=== PATIENT | female | born 1980 | race Caucasian/White ===

== ENCOUNTER 2016-08-12 14:14 | Inpatient (IN) | payer OTHER ==
[2016-08-12 16:17] VITALS: BMI 24.3
--- NOTE | 2016-08-12 18:53 | HP ---
[id number]: Allergies Allergy/AdvReac Type Severity Reaction Status Date / Time lactose AdvReac Verified 08/12/16 19:10 History of Present Illness: 35 YEARS OLD FEMALE WITH LONG HISTORY OF COCAINE NICOTINE DEPENDENCE HAS ASTHMA AND HEMORRHOID IS ADMITTED TO REHAB Exam Limitations: No Limitations - Ebola screening Have you traveled outside of the country in the last 21 days: No Have you had contact with anyone from an Ebola affected area: No Have you been sick,other than usual withdrawal symptoms: No Do you have a fever: No - Review of Systems Constitutional: Loss of Appetite, Unintentional Wgt. Loss, Unexplained wgt Loss EENT: reports: No Symptoms Reported Respiratory: reports: SOB with Exertion Cardiac: reports: No Symptoms Reported GI: reports: No Symptoms Reported : reports: No Symptoms Reported Musculoskeletal: reports: No Symptoms Reported Integumentary: reports: No Symptoms Reported Neuro: reports: No Symptoms reported Endocrine: reports: No Symptoms Reported Hematology: reports: No Symptoms Reported Psychiatric: reports: Judgement Intact, Orientated x3, Anxious, Depressed Other Systems: Reviewed and Negative Patient History - Patient Medical History Hx Anemia: No Hx Asthma: Yes Hx Chronic Obstructive Pulmonary Disease (COPD): No Hx Cancer: No Hx Cardiac Disorders: No Hx Congestive Heart Failure: No Hx Hypertension: No (?) Hx Hypercholesterolemia: No Hx Pacemaker: No HX Cerebrovascular Accident: No Hx Seizures: No Hx Dementia: No Hx Diabetes: No Hx Gastrointestinal Disorders: No Hx Liver Disease: No Hx Genitourinary Disorders: No Hx Sexually Transmitted Disorders: No Hx Renal Disease (ESRD): No Hx Thyroid Disease: No Hx Human Immunodeficiency Virus (HIV): No Hx Hepatitis C: No Hx Depression: Yes Hx Suicide Attempt: No Hx Bipolar Disorder: No Hx Schizophrenia: No - Patient Surgical History Past Surgical History: No - PPD History Previous Implant?: Yes Documented Results: Negative w/o proof Implanted On Prior [facility] Admission?: No PPD to be Administered?: Yes - Reproductive History Patient is a Female of Child Bearing Age (11 -55 yrs old): Yes Last Menstrual Period: 08/01/16 Patient : No - Smoking Cessation Smoking history: Current every day smoker Have you smoked in the past 12 months: Yes Aproximately how many cigarettes per day: 2 Cigars Per Day: 0 Hx Chewing Tobacco Use: No Initiated information on smoking cessation: Yes 'Breaking Loose' booklet given: 08/12/16 - Substance & Tx. History Hx Alcohol Use: No Hx Substance Use: Yes Substance Use Type: Cocaine Hx Substance Use Treatment: Yes - Substances Abused Cocaine Route: Inhalation Frequency: 3-6 times per week Amount used: 20$ Age of first use: 13 Date of Last Use: 08/10/16 Family Disease History - Family Disease History Family Disease History: Diabetes: Daughter (TYPE I), Other: Father ( HIV ) Admission Physical Exam [facility] - Vital Signs Vital Signs: Vital Signs - 24 hr 08/12/16 16:14 Temperature 96 F L Pulse Rate 55 L Respiratory 20 Rate Blood Pressure 156/76 - Physical General Appearance: Yes: No Apparent Distress, Appropriately Dressed, Thin HEENTM: Yes: Hearing grossly Normal, Normal ENT Inspection, Normocephalic, Normal Voice Respiratory: Yes: Chest Non-Tender, Lungs Clear, Normal Breath Sounds, No Respiratory Distress, No Accessory Muscle Use Neck: Yes: Supple, Trachea in good position Breast: Yes: Breasts Symetrical Cardiology: Yes: Regular Rhythm, S1, S2, Bradycardia Abdominal: Yes: Non Tender, Soft Genitourinary: Yes: Vaginal Discharge (WHITISH) Back: Yes: Normal Inspection Musculoskeletal: Yes: full range of Motion, Gait Steady, Back pain Extremities: Yes: Normal Inspection, Normal Range of Motion, Non-Tender Neurological: Yes: Fully Oriented, Alert, Motor Strength 5/5, Normal Response, Depressed Affect Integumentary: Yes: Warm Lymphatic: Yes: Within Normal Limits - Diagnostic (1) Cocaine dependence, uncomplicated Current Visit: Yes Status: Chronic (2) Nicotine dependence Current Visit: Yes Status: Acute Qualifiers: Nicotine product type: cigarettes Substance use status: in withdrawal Qualified Code(s): F17.213 - Nicotine dependence, cigarettes, with withdrawal (3) Hemorrhoidal skin tags Current Visit: Yes Status: Chronic (4) Weight loss Current Visit: Yes Status: Chronic (5) Asthma Current Visit: Yes Status: Chronic Qualifiers: Asthma severity: mild intermittent Asthma complication type: with status asthmaticus Qualified Code(s): J45.22 - Mild intermittent asthma with status asthmaticus (6) GERD (gastroesophageal reflux disease) Current Visit: Yes Status: Chronic Qualifiers: Esophagitis presence: without esophagitis Qualified Code(s): K21.9 - Gastro-esophageal reflux disease without esophagitis (7) Lactose intolerance in adult Current Visit: Yes Status: Chronic Cleared for Admission [facility] - Detox or Rehab [facility] Level of Care: Observation Bed Detox Regimen/Protocol: Not Applicable Claeared for Rehab Admission: Yes [facility] Breath Alcohol Content Breath Alcohol Content: 0 Vital Signs - Vital Signs Vital Signs Refused: No Temperature: 96.1 F Temperature Source: Oral Pulse Rate: 55 Respiratory Rate: 20 Blood Pressure: 156/76 BP Location: Left Arm Blood Pressure Position: Sitting - Height Height: 5 ft 4 in - Weight Weight: 142 lb Weight Measurement Method: Standing Scale Body Mass Index (BMI): 24.3 - Bowel Function Bowel Movement: Yes Urine Pregancy Test - Result Urine Test Results: Negative- NO Line Present Urine Drug Screen - Control Is Test Valid: Yes - Results Drug Screen Negative: No Urine Drug Screen Results: KEEGAN-Cocaine
[2016-08-12] MEDS ORDERED: diphenhydrAMINE HCL 50 MG CAPSULE PO PRN (19:03)
[2016-08-12] MEDS ORDERED: ACETAMINOPHEN 325 MG TABLET (FP) PO PRN (19:03)
[2016-08-12] MEDS ORDERED: NICOTINE POLACRILEX 2 MG GUM BC PRN (19:03)
[2016-08-12] MEDS ORDERED: MAG HYDROX/AL HYDROX/SIMETH 30 ML UNIT-DOSE CUP PO PRN (19:03)
[2016-08-12] MEDS ORDERED: P-EPHED 60MG/TRIPROLIDI 2.5MG TABLET PO PRN (19:03)
[2016-08-12] MEDS ORDERED: LOPERAMIDE HCL 2 MG CAPSULE PO PRN (19:03)
[2016-08-12] MEDS ORDERED: MAGNESIUM CITRATE 300 ML BOTTLE PO PRN (19:03)
[2016-08-12] MEDS ORDERED: guaiFENesin/D-METHORPHAN HB 10 ML UNIT-DOSE CUPS PO PRN (19:03)
[2016-08-12] MEDS ORDERED: NICOTINE 14 MG/24 HOURS TOPICAL PATCH TD PRN (19:03)
[2016-08-12] MEDS ORDERED: MENTHOL/PHENOL 1 EACH UD MM PRN (19:03)
[2016-08-12] MEDS ORDERED: COLLOIDAL OATMEAL 1 BAR EACH TP PRN (19:06)
[2016-08-12] MEDS: THIAMINE HCL 100 MG TABLET (FP) PO SCH (21:40)
[2016-08-12] MEDS ORDERED: TUBERCULIN PPD 5 TU/0.1ML VIAL ID ONE (21:55)
[2016-08-12 22:30] LABS: URINE APPEARANCE CLEAR; URINE BILIRUBIN NEGATIVE (NEGATIVE); URINE COLOR LTYELLOW; URINE GLUCOSE (UA) NEGATIVE (NEGATIVE); URINE KETONE NEGATIVE (NEGATIVE); URINE LEUK ESTERASE NEGATIVE (NEGATIVE); URINE NITRITE NEGATIVE (NEGATIVE); URINE PROTEIN NEGATIVE (NEGATIVE); URINE UROBILINOGEN NEGATIVE E.U./dl (0.2-1.0)
[2016-08-12 22:38] LABS: URINE BLOOD 1+ (NEGATIVE)
[2016-08-12 22:41] LABS: URINE MUCUS RARE; URINE RBC 3 /hpf (0-3); URINE WBC <1 /hpf (3-5)
[2016-08-12] MEDS: PHENYLEPHRINE 0.25%/STARCH 1 EACH SUPP.RECT PR SCH (22:50)
[2016-08-12] MEDS: metroNIDAZOLE 0.75% VAGINAL GEL 70 GM TUBE VG SCH (23:45)
[2016-08-13] MEDS ORDERED: PT OWN MED DRAWER 7, Y5N ONE ×5 (00:07→14:37)
[2016-08-13] MEDS ORDERED: TUBERCULIN PPD 5 TU/0.1ML VIAL ID ONE (00:09)
[2016-08-13] MEDS: ALBUTEROL SO4 6.7 GM HFA INHALER IH PRN (06:42)
--- NOTE | 2016-08-13 09:14 | EKG ---
Test Reason : Blood Pressure : / mmHG Vent. Rate : 053 BPM Atrial Rate : 053 BPM P-R Int : 126 ms QRS Dur : 084 ms QT Int : 466 ms P-R-T Axes : 043 026 039 degrees QTc Int : 437 ms SINUS BRADYCARDIA WITH SINUS ARRHYTHMIA OTHERWISE NORMAL ECG NO PREVIOUS ECGS AVAILABLE Confirmed by AGGIE FISHER, GERALDINE ([id number]) on 08/13/2016 9:13:46 AM Referred By: Minnie Rodrigues Confirmed By:GERALDINE MARCIAL MD
[2016-08-13] MEDS: PHENYLEPHRINE 0.25%/STARCH 1 EACH SUPP.RECT PR SCH ×2 (09:20→21:25)
[2016-08-13] MEDS: ASPIRIN 81 MG CHEWABLE TABLETS PO SCH (09:20)
[2016-08-13] MEDS: PRENATAL VITAMINS W/ FOLIC ACID TABLET (FP) PO SCH (09:21)
[2016-08-13 10:11] LABS: MCH 31.2 pg (25.7-33.7); MCHC 33.3 g/dl (32.0-36.0); MEAN CELL VOLUME 93.9 fl (80-96); MEAN PLT VOLUME 9.6 fl (7.5-11.1); PLATELET COUNT 205 K/MM3 (134-434); RDW 13.4 % (11.6-15.6)
[2016-08-13 10:40] LABS: ALBUMIN 3.4 g/dl (3.4-5.0); ALK PHOS 68 U/L (45-117); ANION GAP 8 (8-16); BILIRUBIN,TOTAL 0.2 mg/dL (0.2-1.0); CALCIUM 8.4 mg/dL (8.5-10.1); CO2 25 mmol/L (21-32); COCKROFT - GAULT 87.805; CREATININE 0.9 mg/dL (0.55-1.02); GLUCOSE,RANDOM 85 mg/dL (74-106); SGOT/AST 18 U/L (15-37); SGPT/ALT 34 U/L (12-78); TOT PROT 5.9 g/dl (6.4-8.2)
[2016-08-13] MEDS: SODIUM CHLORIDE NASAL SPRAY 44 ML BOTTLE NS PRN (15:19)
[2016-08-13] MEDS: THIAMINE HCL 100 MG TABLET (FP) PO SCH (21:23)
[2016-08-13] MEDS: metroNIDAZOLE 0.75% VAGINAL GEL 70 GM TUBE VG SCH (21:24)
[2016-08-14] MEDS: PRENATAL VITAMINS W/ FOLIC ACID TABLET (FP) PO SCH (09:11)
[2016-08-14] MEDS: PHENYLEPHRINE 0.25%/STARCH 1 EACH SUPP.RECT PR SCH ×2 (09:11→21:47)
[2016-08-14] MEDS: ASPIRIN 81 MG CHEWABLE TABLETS PO SCH (09:12)
[2016-08-14] MEDS ORDERED: PT OWN MED DRAWER 7, Y5N ONE (20:50)
[2016-08-14] MEDS: THIAMINE HCL 100 MG TABLET (FP) PO SCH (21:47)
[2016-08-14] MEDS: metroNIDAZOLE 0.75% VAGINAL GEL 70 GM TUBE VG SCH (21:48)
[2016-08-15] MEDS ORDERED: PT OWN MED DRAWER 7, Y5N ONE (08:51)
--- NOTE | 2016-08-15 09:13 | HP ---
Psychiatrist Admission - Data Date of interview: 08/15/16 Admission source: [facility] Identifying data: This is the first admission to [address] [place] [address] for this 35 years old single AA mother of 5 (4 of them with grandmother,1 in Foster care).Patient is homeless,supported by PA. Medical History: BA,GERD. Psychiatric History: denies previous psychiatric history but reports a lot of anxiety,mood instability.Never being treated by psychiatrist. Physical/Sexual Abuse/Trauma History: denies Vital Signs: Vital Signs - 24 hr 08/15/16 08/15/16 08/15/16 00:30 03:30 07:00 Temperature 97.7 F Pulse Rate 54 L Respiratory 18 18 18 Rate Blood Pressure 136/79 Allergies/Adverse Reactions: Allergies Allergy/AdvReac Type Severity Reaction Status Date / Time lactose AdvReac Verified 08/12/16 19:10 Date of last physical exam: 08/12/16 Concur with the findings of this exam: Yes - Substance Abuse/Tx History Hx Alcohol Use: Yes (socially) Hx Substance Use: Yes (started cocaine/crack since 14 years old) Substance Use Type: Cocaine Hx Substance Use Treatment: Yes - Admission Criteria Previous failed treatment: Yes Poor recovery environment: Yes Comorbidities: Yes Lacks judgement: Yes Mental Status Exam - Mental Status Exam Alert and Oriented to: Time, Place, Person Cognitive Function: Grossly Intact Patient Appearance: Well Groomed Mood: Anxious Affect: Mood Congruent, Labile Patient Behavior: Cooperative Speech Pattern: Clear Voice Loudness: Normal Thought Process: Goal Oriented Thought Disorder: Not Present Hallucinations: Denies Suicidal Ideation: Denies Homicidal Ideation: Denies Insight/Judgement: Fair Sleep: Fair Appetite: Good Muscle strength/Tone: Normal Gait/Station: Normal Psychiatric Findings - Problem List ([place] 1, 2,3) (1) Cocaine dependence, uncomplicated Current Visit: Yes Status: Chronic (2) Nicotine dependence Current Visit: Yes Status: Acute Qualifiers: Nicotine product type: cigarettes Substance use status: in withdrawal Qualified Code(s): F17.213 - Nicotine dependence, cigarettes, with withdrawal (3) Weight loss Current Visit: Yes Status: Chronic (4) Asthma Current Visit: Yes Status: Chronic Qualifiers: Asthma severity: mild intermittent Asthma complication type: with status asthmaticus Qualified Code(s): J45.22 - Mild intermittent asthma with status asthmaticus (5) GERD (gastroesophageal reflux disease) Current Visit: Yes Status: Chronic Qualifiers: Esophagitis presence: without esophagitis Qualified Code(s): K21.9 - Gastro-esophageal reflux disease without esophagitis (6) Lactose intolerance in adult Current Visit: Yes Status: Chronic (7) Substance induced mood disorder Current Visit: Yes Status: Chronic - Initial Treatment Plan Initial Treatment Plan: Vistaril 50 mg po q 4 hrs as needed.Will monitor progress.
[2016-08-15] MEDS: PRENATAL VITAMINS W/ FOLIC ACID TABLET (FP) PO SCH (09:36)
[2016-08-15] MEDS: hydrOXYzine PAMOATE 50 MG CAPSULE (FP) PO PRN ×2 (09:36→15:13)
[2016-08-15] MEDS: PHENYLEPHRINE 0.25%/STARCH 1 EACH SUPP.RECT PR SCH ×2 (09:37→21:25)
[2016-08-15] MEDS: SODIUM CHLORIDE NASAL SPRAY 44 ML BOTTLE NS PRN (09:37)
[2016-08-15] MEDS: ASPIRIN 81 MG CHEWABLE TABLETS PO SCH (09:39)
[2016-08-15] MEDS: metroNIDAZOLE 0.75% VAGINAL GEL 70 GM TUBE VG SCH (21:24)
[2016-08-15] MEDS: THIAMINE HCL 100 MG TABLET (FP) PO SCH (21:24)
[2016-08-16] MEDS: hydrOXYzine PAMOATE 50 MG CAPSULE (FP) PO PRN ×2 (07:25→21:53)
[2016-08-16] MEDS ORDERED: PT OWN MED DRAWER 7, Y5N ONE ×3 (07:27→21:52)
[2016-08-16] MEDS: PRENATAL VITAMINS W/ FOLIC ACID TABLET (FP) PO SCH (10:22)
[2016-08-16] MEDS: PHENYLEPHRINE 0.25%/STARCH 1 EACH SUPP.RECT PR SCH ×2 (10:23→21:52)
[2016-08-16] MEDS: THIAMINE HCL 100 MG TABLET (FP) PO SCH (21:50)
[2016-08-16] MEDS: metroNIDAZOLE 0.75% VAGINAL GEL 70 GM TUBE VG SCH (21:52)
[2016-08-17] MEDS ORDERED: PT OWN MED DRAWER 7, Y5N ONE (08:56)
[2016-08-17] MEDS: PHENYLEPHRINE 0.25%/STARCH 1 EACH SUPP.RECT PR SCH ×2 (10:21→21:45)
[2016-08-17] MEDS: PRENATAL VITAMINS W/ FOLIC ACID TABLET (FP) PO SCH (10:22)
[2016-08-17] MEDS: MAGNESIUM HYDROX 2400MG/30ML ORAL SUSPENSION 30 ML CUP PO PRN (12:15)
[2016-08-17] MEDS: THIAMINE HCL 100 MG TABLET (FP) PO SCH (21:45)
[2016-08-17] MEDS: metroNIDAZOLE 0.75% VAGINAL GEL 70 GM TUBE VG SCH (21:45)
[2016-08-18] MEDS: PHENYLEPHRINE 0.25%/STARCH 1 EACH SUPP.RECT PR SCH ×2 (10:30→21:40)
[2016-08-18] MEDS: PRENATAL VITAMINS W/ FOLIC ACID TABLET (FP) PO SCH (10:30)
[2016-08-18] MEDS: THIAMINE HCL 100 MG TABLET (FP) PO SCH (21:40)
[2016-08-19] MEDS: hydrOXYzine PAMOATE 50 MG CAPSULE (FP) PO PRN (08:55)
[2016-08-19] MEDS: PRENATAL VITAMINS W/ FOLIC ACID TABLET (FP) PO SCH (10:40)
[2016-08-19] MEDS: PHENYLEPHRINE 0.25%/STARCH 1 EACH SUPP.RECT PR SCH ×2 (10:41→22:01)
--- NOTE | 2016-08-19 13:31 | PN ---
[facility] Progress Note Note: stated has vaginal itching ,vaginitis,stated responded to flagyl in the past , flagyl 500 mgs po tid for 7 days, diflucan 150 mgs po one
[2016-08-19] MEDS ORDERED: FLUCONAZOLE 50 MG TABLET PO ONE (13:48)
[2016-08-19] MEDS: metroNIDAZOLE 250 MG TABLET PO SCH ×2 (14:46→22:01)
[2016-08-19] MEDS ORDERED: PT OWN MED DRAWER 7, Y5N ONE (19:59)
[2016-08-19] MEDS: THIAMINE HCL 100 MG TABLET (FP) PO SCH (22:01)
[2016-08-20] MEDS: metroNIDAZOLE 250 MG TABLET PO SCH ×3 (06:38→21:50)
[2016-08-20] MEDS ORDERED: PT OWN MED DRAWER 7, Y5N ONE (08:57)
[2016-08-20] MEDS: PHENYLEPHRINE 0.25%/STARCH 1 EACH SUPP.RECT PR SCH ×2 (10:14→21:51)
[2016-08-20] MEDS: PRENATAL VITAMINS W/ FOLIC ACID TABLET (FP) PO SCH (10:15)
[2016-08-20] MEDS: hydrOXYzine PAMOATE 50 MG CAPSULE (FP) PO PRN (12:58)
[2016-08-20] MEDS: THIAMINE HCL 100 MG TABLET (FP) PO SCH (21:50)
[2016-08-21] MEDS: metroNIDAZOLE 250 MG TABLET PO SCH ×3 (06:30→21:55)
[2016-08-21] MEDS: hydrOXYzine PAMOATE 50 MG CAPSULE (FP) PO PRN (07:55)
[2016-08-21] MEDS: PHENYLEPHRINE 0.25%/STARCH 1 EACH SUPP.RECT PR SCH ×2 (10:17→21:56)
[2016-08-21] MEDS: PRENATAL VITAMINS W/ FOLIC ACID TABLET (FP) PO SCH (10:18)
[2016-08-21] MEDS ORDERED: PT OWN MED DRAWER 7, Y5N ONE ×2 (10:18→21:57)
[2016-08-21] MEDS: THIAMINE HCL 100 MG TABLET (FP) PO SCH (21:55)
[2016-08-22] MEDS ORDERED: PT OWN MED DRAWER 7, Y5N ONE ×2 (05:47→12:21)
[2016-08-22] MEDS: metroNIDAZOLE 250 MG TABLET PO SCH ×3 (06:47→21:49)
[2016-08-22] MEDS: hydrOXYzine PAMOATE 50 MG CAPSULE (FP) PO PRN (06:48)
[2016-08-22] MEDS: PHENYLEPHRINE 0.25%/STARCH 1 EACH SUPP.RECT PR SCH ×2 (09:29→21:48)
[2016-08-22] MEDS: PRENATAL VITAMINS W/ FOLIC ACID TABLET (FP) PO SCH (09:29)
[2016-08-22] MEDS: SODIUM CHLORIDE NASAL SPRAY 44 ML BOTTLE NS PRN (09:30)
--- NOTE | 2016-08-22 12:05 | PN ---
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 ROS: Significant for BA,GERD. Current Medications: Active Medications Generic Name Dose Route Start Last Admin Trade Name Freq PRN Reason Stop Dose Admin Acetaminophen 650 mg 08/12/16 19:03 Tylenol - PO Q4H PRN PAIN Al Hydroxide/Mg Hydroxide 30 ml 08/12/16 19:03 Mylanta Oral Suspension - PO Q6H PRN DYSPEPSIA Albuterol Sulfate 2 puff 08/12/16 19:06 08/13/16 06:42 Ventolin Hfa Inhaler - IH 2 puff Q4H PRN Administration SHORT OF BREATH/WHEEZING Colloidal Oatmeal 1 applic 08/12/16 19:06 08/13/16 09:21 Aveeno Soap - TP 1 bar DAILY PRN Administration HYGEINE Diphenhydramine HCl 50 mg 08/12/16 19:03 08/16/16 21:50 Benadryl - PO 50 mg HSMR1 PRN Administration INSOMNIA Eucalyptus/Menthol/Phenol/Sorbitol 1 each 08/12/16 19:03 Cepastat Lozenge - MM Q4H PRN SORE THROAT Guaifenesin 10 ml 08/12/16 19:03 Robitussin Dm - PO Q6H PRN COUGH Hydroxyzine Pamoate 50 mg 08/12/16 19:03 08/22/16 06:48 Vistaril - PO 50 mg Q4H PRN Administration AGITATION Loperamide HCl 4 mg 08/12/16 19:03 Imodium - PO Q6H PRN DIARRHEA Magnesium Citrate 300 ml 08/12/16 19:03 Citroma - PO Q48H PRN CONSTIPATION Magnesium Hydroxide 30 ml 08/12/16 19:03 08/17/16 12:15 Milk Of Magnesia - PO 30 ml DAILY PRN Administration CONSTIPATION Metronidazole 500 mg 08/19/16 14:00 08/22/16 06:47 Flagyl - PO 500 mg TID CHUCK Administration Nicotine 14 mg 08/12/16 19:03 Nicoderm Patch - TD DAILY PRN WITHDRAWAL(CONT SUBST) Nicotine Polacrilex 2 mg 08/12/16 19:03 08/20/16 18:50 Nicorette Gum - BC 2 mg Q2H PRN Administration NICOTINE REPLACEMENT RX Multivit/Folic Acid/Iron 1 tab 08/13/16 10:00 08/22/16 09:29 Vitamins ([facility]) - PO 1 tab DAILY CHUCK Administration Pseudoephedrine/Triprolidine 1 combo 08/12/16 19:03 Actifed - PO TID PRN NASAL CONGESTION Sodium Chloride 2 spray 08/12/16 19:05 08/22/16 09:30 [place] Nasal [place] - NS 2 spray TID PRN Administration NASAL CONGESTION Starch 1 each 08/12/16 22:00 08/22/16 09:29 Anusol Suppository - [place] 1 each BID CHUCK Administration Thiamine HCl 100 mg 08/12/16 22:00 08/21/16 21:55 Vitamin B1 - PO 100 mg HS CHUCK Administration Current Side Effect: No Lab tests ordered: No Lab tests reviewed: Yes Provider note:: Chart was revuewed,patient was evaluated.Case has been discussed on the morning report.According to the staff,patient is very suspicious and sensitive as well as too offensive,easily gets frustrated, irritable,anxious .According to her people around smell some vagina odor and making fun on her,counselour is prejudice against her. Possibilities of taking psychotropic medications has been discussed with the patient. Properties of Risperidone has been discussed with the patient including benefits,side effects and dose adjustment.She agrees to start Risperidone 0,5 mg po bid. Supportive therapy provided. Total face to face time:: 30 Mental Status Exam - Mental Status Exam Alert and Oriented to: Time, Place, Person Cognitive Function: Grossly Intact Patient Appearance: Unkempt Mood: Suspicious, Anxious Affect: Labile Patient Behavior: Restless, Guarded, Distractible, Impulsive, Cooperative Speech Pattern: Clear Voice Loudness: Normal Thought Process: Goal Oriented Thought Disorder: Being Controlled Hallucinations: Denies Suicidal Ideation: Denies Homicidal Ideation: Denies Insight/Judgement: Fair Sleep: Fair Appetite: Good Muscle strength/Tone: Normal Gait/Station: Normal Psychiatric Treatment Plan - Problem List (1) Cocaine dependence, uncomplicated Current Visit: Yes (2) Nicotine dependence Current Visit: Yes Qualifiers: Nicotine product type: cigarettes Substance use status: in withdrawal Qualified Code(s): F17.213 - Nicotine dependence, cigarettes, with withdrawal (3) Weight loss Current Visit: Yes (4) Asthma Current Visit: Yes Qualifiers: Asthma severity: mild intermittent Asthma complication type: with status asthmaticus Qualified Code(s): J45.22 - Mild intermittent asthma with status asthmaticus (5) GERD (gastroesophageal reflux disease) Current Visit: Yes Qualifiers: Esophagitis presence: without esophagitis Qualified Code(s): K21.9 - Gastro-esophageal reflux disease without esophagitis (6) Lactose intolerance in adult Current Visit: Yes (7) Substance induced mood disorder Current Visit: Yes
[2016-08-22] MEDS: risperiDONE 0.5 MG TABLET (FP) PO SCH ×2 (12:26→21:49)
--- NOTE | 2016-08-22 14:25 | PN ---
[facility] Progress Note Note: still c/o vag. d/c Start monistat.
[2016-08-22] MEDS: THIAMINE HCL 100 MG TABLET (FP) PO SCH (21:49)
[2016-08-22] MEDS: MICONAZOLE NITRATE 2% VAGINAL CREAM 45 GM TUBE VG SCH (21:51)
[2016-08-23] MEDS: metroNIDAZOLE 250 MG TABLET PO SCH ×3 (06:09→21:45)
[2016-08-23] MEDS ORDERED: PT OWN MED DRAWER 7, Y5N ONE ×2 (08:52→20:52)
[2016-08-23] MEDS: PRENATAL VITAMINS W/ FOLIC ACID TABLET (FP) PO SCH (10:43)
[2016-08-23] MEDS: PHENYLEPHRINE 0.25%/STARCH 1 EACH SUPP.RECT PR SCH ×2 (10:43→21:45)
[2016-08-23] MEDS: risperiDONE 0.5 MG TABLET (FP) PO SCH ×2 (10:43→21:45)
[2016-08-23] MEDS: hydrOXYzine PAMOATE 50 MG CAPSULE (FP) PO PRN (17:50)
[2016-08-23] MEDS: MICONAZOLE NITRATE 2% VAGINAL CREAM 45 GM TUBE VG SCH (21:44)
[2016-08-23] MEDS: THIAMINE HCL 100 MG TABLET (FP) PO SCH (21:46)
[2016-08-24] MEDS: metroNIDAZOLE 250 MG TABLET PO SCH ×3 (06:38→21:42)
[2016-08-24] MEDS: hydrOXYzine PAMOATE 50 MG CAPSULE (FP) PO PRN (06:39)
[2016-08-24] MEDS ORDERED: PT OWN MED DRAWER 7, Y5N ONE ×2 (08:58→21:44)
--- NOTE | 2016-08-24 10:15 | PN ---
Psychiatric Progress Note Vital Signs: Vital Signs Period Temp Pulse Resp BP Sys/Leal Pulse Ox Last 24 Hr 97.8 F 85 18-18 121/85 Date of Session: 08/24/16 Chief Complaint:: Griffin so nervious,people are talking about me." HPI: Patient addressed Cocaine dependence comorbid with Substance induced mood/ psychotic disorder.Rule out Schizophrenia.Paranoid type. ROS: BA,GERD. Current Medications: Active Medications Generic Name Dose Route Start Last Admin Trade Name Freq PRN Reason Stop Dose Admin Acetaminophen 650 mg 08/12/16 19:03 Tylenol - PO Q4H PRN PAIN Al Hydroxide/Mg Hydroxide 30 ml 08/12/16 19:03 Mylanta Oral Suspension - PO Q6H PRN DYSPEPSIA Albuterol Sulfate 2 puff 08/12/16 19:06 08/13/16 06:42 Ventolin Hfa Inhaler - IH 2 puff Q4H PRN Administration SHORT OF BREATH/WHEEZING Benztropine Mesylate 0.5 mg 08/24/16 22:00 Cogentin - PO HS CHUCK Colloidal Oatmeal 1 applic 08/12/16 19:06 08/13/16 09:21 Aveeno Soap - TP 1 bar DAILY PRN Administration HYGEINE Diphenhydramine HCl 50 mg 08/12/16 19:03 08/16/16 21:50 Benadryl - PO 50 mg HSMR1 PRN Administration INSOMNIA Eucalyptus/Menthol/Phenol/Sorbitol 1 each 08/12/16 19:03 Cepastat Lozenge - MM Q4H PRN SORE THROAT Guaifenesin 10 ml 08/12/16 19:03 Robitussin Dm - PO Q6H PRN COUGH Hydroxyzine Pamoate 50 mg 08/24/16 14:00 Vistaril - PO QID CHUCK Loperamide HCl 4 mg 08/12/16 19:03 Imodium - PO Q6H PRN DIARRHEA Magnesium Citrate 300 ml 08/12/16 19:03 Citroma - PO Q48H PRN CONSTIPATION Magnesium Hydroxide 30 ml 08/12/16 19:03 08/17/16 12:15 Milk Of Magnesia - PO 30 ml DAILY PRN Administration CONSTIPATION Metronidazole 500 mg 08/19/16 14:00 08/24/16 06:38 Flagyl - PO 500 mg TID CHUCK Administration Miconazole Nitrate 1 applic 08/22/16 22:00 08/23/16 21:44 Monistat-7 Vaginal Cream - VG 08/28/16 22:01 1 applic HS CHUCK Administration Nicotine 14 mg 08/12/16 19:03 Nicoderm Patch - TD DAILY PRN WITHDRAWAL(CONT SUBST) Nicotine Polacrilex 2 mg 08/12/16 19:03 08/20/16 18:50 Nicorette Gum - BC 2 mg Q2H PRN Administration NICOTINE REPLACEMENT RX Multivit/Folic Acid/Iron 1 tab 08/13/16 10:00 08/23/16 10:43 Vitamins ([facility]) - PO 1 tab DAILY CHUCK Administration Pseudoephedrine/Triprolidine 1 combo 08/12/16 19:03 Actifed - PO TID PRN NASAL CONGESTION Risperidone 1 mg 08/24/16 22:00 Risperdal - PO BID CHUCK Sodium Chloride 2 spray 08/12/16 19:05 08/22/16 09:30 [place] Nasal [place] - NS 2 spray TID PRN Administration NASAL CONGESTION Starch 1 each 08/12/16 22:00 08/23/16 21:45 Anusol Suppository - [place] 1 each BID CHUCK Administration Thiamine HCl 100 mg 08/12/16 22:00 08/23/16 21:46 Vitamin B1 - PO 100 mg HS CHUCK Administration Current Side Effect: No Lab tests ordered: No Lab tests reviewed: Yes Provider note:: Chart was revuewed,medications and treatment plan has been discussed with the patient .She reports having anxiety related to people around who are after her,about odor from her .She remains suspicious and quarded. Dose adjustment of antipsychotics and mood stabilizers has been discussed with the patient.She agrees for adjustment of Risperidone to 1 mg po bid,Vistaril 50 mg po qid.Start Cogentin 0,5 mg po hs. Supportive therapy provided. Total face to face time:: 30 Mental Status Exam - Mental Status Exam Alert and Oriented to: Time, Place, Person Cognitive Function: Grossly Intact Patient Appearance: Unkempt Mood: Nervous, Apprehensive, Expansive Patient Behavior: Restless, Guarded, Impulsive Speech Pattern: Clear Voice Loudness: Normal Thought Process: Goal Oriented Thought Disorder: Present, Paranoid Ideation Hallucinations: Denies Suicidal Ideation: Denies Homicidal Ideation: Denies Insight/Judgement: Impaired Sleep: Fair Muscle strength/Tone: Normal Gait/Station: Normal Psychiatric Treatment Plan - Problem List (1) Cocaine dependence, uncomplicated Current Visit: Yes (2) Nicotine dependence Current Visit: Yes Qualifiers: Nicotine product type: cigarettes Substance use status: in withdrawal Qualified Code(s): F17.213 - Nicotine dependence, cigarettes, with withdrawal (3) Weight loss Current Visit: Yes (4) Asthma Current Visit: Yes Qualifiers: Asthma severity: mild intermittent Asthma complication type: with status asthmaticus Qualified Code(s): J45.22 - Mild intermittent asthma with status asthmaticus (5) GERD (gastroesophageal reflux disease) Current Visit: Yes Qualifiers: Esophagitis presence: without esophagitis Qualified Code(s): K21.9 - Gastro-esophageal reflux disease without esophagitis (6) Lactose intolerance in adult Current Visit: Yes (7) Substance induced mood disorder Current Visit: Yes (8) Psychoactive substance-induced mood disorder Current Visit: Yes (9) Hemorrhoidal skin tags Current Visit: Yes
[2016-08-24] MEDS ORDERED: risperiDONE 1 MG TABLET (FP) PO STA (10:35)
[2016-08-24] MEDS: PRENATAL VITAMINS W/ FOLIC ACID TABLET (FP) PO SCH (10:36)
[2016-08-24] MEDS: risperiDONE 0.5 MG TABLET (FP) PO SCH (10:44)
[2016-08-24] MEDS: PHENYLEPHRINE 0.25%/STARCH 1 EACH SUPP.RECT PR SCH ×2 (11:30→21:41)
[2016-08-24] MEDS: hydrOXYzine PAMOATE 50 MG CAPSULE (FP) PO SCH ×3 (13:07→21:42)
[2016-08-24] MEDS: THIAMINE HCL 100 MG TABLET (FP) PO SCH (21:42)
[2016-08-24] MEDS: BENZTROPINE MESYLATE 1 MG TABLET (FP) PO SCH (21:43)
[2016-08-24] MEDS: MICONAZOLE NITRATE 2% VAGINAL CREAM 45 GM TUBE VG SCH (21:44)
[2016-08-24] MEDS: risperiDONE 1 MG TABLET (FP) PO SCH (21:45)
[2016-08-25] MEDS: metroNIDAZOLE 250 MG TABLET PO SCH ×3 (06:09→21:48)
[2016-08-25] MEDS ORDERED: PT OWN MED DRAWER 7, Y5N ONE (08:47)
[2016-08-25] MEDS: hydrOXYzine PAMOATE 50 MG CAPSULE (FP) PO SCH ×4 (10:16→21:48)
[2016-08-25] MEDS: SODIUM CHLORIDE NASAL SPRAY 44 ML BOTTLE NS PRN (10:16)
[2016-08-25] MEDS: PHENYLEPHRINE 0.25%/STARCH 1 EACH SUPP.RECT PR SCH ×2 (10:16→21:49)
[2016-08-25] MEDS: PRENATAL VITAMINS W/ FOLIC ACID TABLET (FP) PO SCH (10:16)
[2016-08-25] MEDS: risperiDONE 1 MG TABLET (FP) PO SCH ×2 (10:16→21:48)
[2016-08-25] MEDS: MICONAZOLE NITRATE 2% VAGINAL CREAM 45 GM TUBE VG SCH (21:47)
[2016-08-25] MEDS: THIAMINE HCL 100 MG TABLET (FP) PO SCH (21:48)
[2016-08-25] MEDS: BENZTROPINE MESYLATE 1 MG TABLET (FP) PO SCH (21:49)
[2016-08-26] MEDS: metroNIDAZOLE 250 MG TABLET PO SCH ×2 (06:34→13:22)
[2016-08-26] MEDS ORDERED: PT OWN MED DRAWER 7, Y5N ONE (09:00)
[2016-08-26] MEDS: PHENYLEPHRINE 0.25%/STARCH 1 EACH SUPP.RECT PR SCH ×2 (10:23→21:21)
[2016-08-26] MEDS: risperiDONE 1 MG TABLET (FP) PO SCH ×2 (10:23→21:23)
[2016-08-26] MEDS: hydrOXYzine PAMOATE 50 MG CAPSULE (FP) PO SCH ×4 (10:23→21:23)
[2016-08-26] MEDS: PRENATAL VITAMINS W/ FOLIC ACID TABLET (FP) PO SCH (10:23)
[2016-08-26] MEDS: BENZTROPINE MESYLATE 1 MG TABLET (FP) PO SCH (21:22)
[2016-08-26] MEDS: HYDROCORTISONE 2.5% TOPICAL CREAM 30 GM TUBE TP SCH (21:22)
[2016-08-26] MEDS: MICONAZOLE NITRATE 2% VAGINAL CREAM 45 GM TUBE VG SCH (21:24)
[2016-08-26] MEDS: THIAMINE HCL 100 MG TABLET (FP) PO SCH (21:24)
[2016-08-27] MEDS: risperiDONE 1 MG TABLET (FP) PO SCH ×2 (10:16→21:30)
[2016-08-27] MEDS: hydrOXYzine PAMOATE 50 MG CAPSULE (FP) PO SCH ×4 (10:16→21:30)
[2016-08-27] MEDS: PRENATAL VITAMINS W/ FOLIC ACID TABLET (FP) PO SCH (10:16)
[2016-08-27] MEDS: PHENYLEPHRINE 0.25%/STARCH 1 EACH SUPP.RECT PR SCH ×2 (10:16→21:31)
[2016-08-27] MEDS: HYDROCORTISONE 2.5% TOPICAL CREAM 30 GM TUBE TP SCH ×2 (10:16→21:31)
[2016-08-27] MEDS: THIAMINE HCL 100 MG TABLET (FP) PO SCH (21:30)
[2016-08-27] MEDS: MICONAZOLE NITRATE 2% VAGINAL CREAM 45 GM TUBE VG SCH (21:30)
[2016-08-27] MEDS: BENZTROPINE MESYLATE 1 MG TABLET (FP) PO SCH (21:31)
[2016-08-28] MEDS: ALBUTEROL SO4 6.7 GM HFA INHALER IH PRN (06:29)
[2016-08-28] MEDS ORDERED: PT OWN MED DRAWER 7, Y5N ONE (06:29)
[2016-08-28] MEDS: HYDROCORTISONE 2.5% TOPICAL CREAM 30 GM TUBE TP SCH ×2 (09:57→21:36)
[2016-08-28] MEDS: hydrOXYzine PAMOATE 50 MG CAPSULE (FP) PO SCH ×4 (09:58→21:36)
[2016-08-28] MEDS: PRENATAL VITAMINS W/ FOLIC ACID TABLET (FP) PO SCH (09:58)
[2016-08-28] MEDS: PHENYLEPHRINE 0.25%/STARCH 1 EACH SUPP.RECT PR SCH ×2 (09:58→21:36)
[2016-08-28] MEDS: risperiDONE 1 MG TABLET (FP) PO SCH ×2 (09:58→21:36)
[2016-08-28] MEDS: BENZTROPINE MESYLATE 1 MG TABLET (FP) PO SCH (21:36)
[2016-08-28] MEDS: THIAMINE HCL 100 MG TABLET (FP) PO SCH (21:36)
[2016-08-28] MEDS: MICONAZOLE NITRATE 2% VAGINAL CREAM 45 GM TUBE VG SCH (21:37)
[2016-08-29] MEDS: risperiDONE 1 MG TABLET (FP) PO SCH ×2 (10:27→21:46)
[2016-08-29] MEDS: hydrOXYzine PAMOATE 50 MG CAPSULE (FP) PO SCH ×4 (10:27→21:46)
[2016-08-29] MEDS: PRENATAL VITAMINS W/ FOLIC ACID TABLET (FP) PO SCH (10:27)
[2016-08-29] MEDS: HYDROCORTISONE 2.5% TOPICAL CREAM 30 GM TUBE TP SCH ×2 (10:27→21:47)
[2016-08-29] MEDS: PHENYLEPHRINE 0.25%/STARCH 1 EACH SUPP.RECT PR SCH ×2 (10:27→21:47)
[2016-08-29] MEDS: THIAMINE HCL 100 MG TABLET (FP) PO SCH (21:46)
[2016-08-29] MEDS: BENZTROPINE MESYLATE 1 MG TABLET (FP) PO SCH (21:47)
[2016-08-30] MEDS: PRENATAL VITAMINS W/ FOLIC ACID TABLET (FP) PO SCH (10:51)
[2016-08-30] MEDS: PHENYLEPHRINE 0.25%/STARCH 1 EACH SUPP.RECT PR SCH ×2 (10:51→21:41)
[2016-08-30] MEDS: HYDROCORTISONE 2.5% TOPICAL CREAM 30 GM TUBE TP SCH ×2 (10:51→21:41)
[2016-08-30] MEDS: risperiDONE 1 MG TABLET (FP) PO SCH ×2 (10:52→21:42)
[2016-08-30] MEDS: hydrOXYzine PAMOATE 50 MG CAPSULE (FP) PO SCH ×4 (10:52→21:42)
[2016-08-30] MEDS: THIAMINE HCL 100 MG TABLET (FP) PO SCH (21:42)
[2016-08-30] MEDS: BENZTROPINE MESYLATE 1 MG TABLET (FP) PO SCH (21:43)
[2016-08-30] MEDS ORDERED: PT OWN MED DRAWER 7, Y5N ONE (23:41)
[2016-08-31] MEDS: PRENATAL VITAMINS W/ FOLIC ACID TABLET (FP) PO SCH (10:35)
[2016-08-31] MEDS: PHENYLEPHRINE 0.25%/STARCH 1 EACH SUPP.RECT PR SCH ×2 (10:35→21:50)
[2016-08-31] MEDS: risperiDONE 1 MG TABLET (FP) PO SCH ×2 (10:35→21:49)
[2016-08-31] MEDS: HYDROCORTISONE 2.5% TOPICAL CREAM 30 GM TUBE TP SCH ×2 (10:36→21:50)
[2016-08-31] MEDS: hydrOXYzine PAMOATE 50 MG CAPSULE (FP) PO SCH ×4 (10:36→21:50)
[2016-08-31] MEDS ORDERED: PT OWN MED DRAWER 7, Y5N ONE ×2 (15:14→16:10)
[2016-08-31] MEDS: THIAMINE HCL 100 MG TABLET (FP) PO SCH (21:49)
[2016-08-31] MEDS: BENZTROPINE MESYLATE 1 MG TABLET (FP) PO SCH (21:50)
[2016-09-01] MEDS ORDERED: PT OWN MED DRAWER 7, Y5N ONE (09:01)
[2016-09-01] MEDS: risperiDONE 1 MG TABLET (FP) PO SCH ×2 (11:01→21:46)
[2016-09-01] MEDS: HYDROCORTISONE 2.5% TOPICAL CREAM 30 GM TUBE TP SCH ×2 (11:01→21:47)
[2016-09-01] MEDS: PHENYLEPHRINE 0.25%/STARCH 1 EACH SUPP.RECT PR SCH ×2 (11:02→21:47)
[2016-09-01] MEDS: PRENATAL VITAMINS W/ FOLIC ACID TABLET (FP) PO SCH (11:02)
[2016-09-01] MEDS: hydrOXYzine PAMOATE 50 MG CAPSULE (FP) PO SCH ×4 (11:02→21:46)
[2016-09-01] MEDS: MAGNESIUM HYDROX 2400MG/30ML ORAL SUSPENSION 30 ML CUP PO PRN (18:07)
[2016-09-01] MEDS: THIAMINE HCL 100 MG TABLET (FP) PO SCH (21:46)
[2016-09-01] MEDS: BENZTROPINE MESYLATE 1 MG TABLET (FP) PO SCH (21:47)
[2016-09-02 07:01] VITALS: BP 104/73; PULSE 85; TEMP 97.3
[2016-09-02] MEDS ORDERED: PT OWN MED DRAWER 7, Y5N ONE (08:50)
--- NOTE | 2016-09-02 08:57 | PN ---
Psychiatric Progress Note Vital Signs: Vital Signs Period Temp Pulse Resp BP Sys/Leal Pulse Ox Last 24 Hr 97.3 F 85 16-18 104/73 Date of Session: 09/02/16 Chief Complaint:: Discharge visit HPI: Patient addressed Cocaine dependence comorbid with Substance induced mood disorder. ROS: Significant for BA,GERD. Current Medications: Active Medications Generic Name Dose Route Start Last Admin Trade Name Freq PRN Reason Stop Dose Admin Acetaminophen 650 mg 08/12/16 19:03 Tylenol - PO Q4H PRN PAIN Al Hydroxide/Mg Hydroxide 30 ml 08/12/16 19:03 Mylanta Oral Suspension - PO Q6H PRN DYSPEPSIA Albuterol Sulfate 2 puff 08/12/16 19:06 08/28/16 06:29 Ventolin Hfa Inhaler - IH 2 puff Q4H PRN Administration SHORT OF BREATH/WHEEZING Benztropine Mesylate 0.5 mg 08/24/16 22:00 09/01/16 21:47 Cogentin - PO 0.5 mg HS CHUCK Administration Colloidal Oatmeal 1 applic 08/12/16 19:06 08/13/16 09:21 Aveeno Soap - TP 1 bar DAILY PRN Administration HYGEINE Diphenhydramine HCl 50 mg 08/12/16 19:03 08/16/16 21:50 Benadryl - PO 50 mg HSMR1 PRN Administration INSOMNIA Eucalyptus/Menthol/Phenol/Sorbitol 1 each 08/12/16 19:03 Cepastat Lozenge - MM Q4H PRN SORE THROAT Guaifenesin 10 ml 08/12/16 19:03 Robitussin Dm - PO Q6H PRN COUGH Hydrocortisone 1 applic 08/26/16 22:00 09/01/16 21:47 Anusol 2.5% Hc Cream - TP Not Given BID CHUCK Hydroxyzine Pamoate 50 mg 08/24/16 14:00 09/01/16 21:46 Vistaril - PO 50 mg QID CHUCK Administration Loperamide HCl 4 mg 08/12/16 19:03 Imodium - PO Q6H PRN DIARRHEA Magnesium Citrate 300 ml 08/12/16 19:03 Citroma - PO Q48H PRN CONSTIPATION Magnesium Hydroxide 30 ml 08/12/16 19:03 09/01/16 18:07 Milk Of Magnesia - PO 30 ml DAILY PRN Administration CONSTIPATION Nicotine 14 mg 08/12/16 19:03 Nicoderm Patch - TD DAILY PRN WITHDRAWAL(CONT SUBST) Nicotine Polacrilex 2 mg 08/12/16 19:03 08/20/16 18:50 Nicorette Gum - BC 2 mg Q2H PRN Administration NICOTINE REPLACEMENT RX Multivit/Folic Acid/Iron 1 tab 08/13/16 10:00 09/01/16 11:02 Vitamins ([facility]) - PO 1 tab DAILY CHUCK Administration Pseudoephedrine/Triprolidine 1 combo 08/12/16 19:03 Actifed - PO TID PRN NASAL CONGESTION Risperidone 1 mg 08/24/16 22:00 09/01/16 21:46 Risperdal - PO 1 mg BID CHUCK Administration Sodium Chloride 2 spray 08/12/16 19:05 08/25/16 10:16 [place] Nasal [place] - NS 2 spray TID PRN Administration NASAL CONGESTION Starch 1 each 08/12/16 22:00 09/01/16 21:47 Anusol Suppository - [place] Not Given BID CHUCK Thiamine HCl 100 mg 08/12/16 22:00 09/01/16 21:46 Vitamin B1 - PO 100 mg HS CHUCK Administration Current Side Effect: No Lab tests ordered: No Lab tests reviewed: Yes Provider note:: Patient completed this program today.She has met her treatment goals and will continue to address her issues on outpatient basis at [facility].Patient will continue risperidone 1 mg po bid for her mood stabilization.Script for 30 days supply provided. Patient identifies areas of difficulties and ways,coping skills,support she can utilze to maintain recovery. Supportive thera py provided. Patient is stable for discharge today. Total face to face time:: 30 Mental Status Exam - Mental Status Exam Alert and Oriented to: Time, Place, Person Cognitive Function: Grossly Intact Patient Appearance: Well Groomed Mood: Euthymic Affect: Appropriate, Mood Congruent Patient Behavior: Appropriate, Cooperative Speech Pattern: Clear Voice Loudness: Normal Thought Process: Goal Oriented Thought Disorder: Not Present Hallucinations: Denies Suicidal Ideation: Denies Homicidal Ideation: Denies Insight/Judgement: Fair Sleep: Fair Appetite: Good Muscle strength/Tone: Normal Gait/Station: Normal Psychiatric Treatment Plan - Problem List (2) Nicotine dependence Qualifiers: Nicotine product type: cigarettes Substance use status: in withdrawal Qualified Code(s): F17.213 - Nicotine dependence, cigarettes, with withdrawal (4) Asthma Qualifiers: Asthma severity: mild intermittent Asthma complication type: with status asthmaticus Qualified Code(s): J45.22 - Mild intermittent asthma with status asthmaticus (5) GERD (gastroesophageal reflux disease) Qualifiers: Esophagitis presence: without esophagitis Qualified Code(s): K21.9 - Gastro-esophageal reflux disease without esophagitis
[2016-09-02] MEDS: hydrOXYzine PAMOATE 50 MG CAPSULE (FP) PO SCH (10:24)
[2016-09-02] MEDS: SODIUM CHLORIDE NASAL SPRAY 44 ML BOTTLE NS PRN (10:24)
[2016-09-02] MEDS: risperiDONE 1 MG TABLET (FP) PO SCH (10:24)
[2016-09-02] MEDS: PRENATAL VITAMINS W/ FOLIC ACID TABLET (FP) PO SCH (10:24)
[2016-09-02] MEDS: HYDROCORTISONE 2.5% TOPICAL CREAM 30 GM TUBE TP SCH (10:25)
[2016-09-02] MEDS: PHENYLEPHRINE 0.25%/STARCH 1 EACH SUPP.RECT PR SCH (10:25)
== END 2016-09-02 10:25 | disposition home or self-care (01) | DRG 772 ==
LOC: YASAS 14:14 → Y3E 18:53
PROVIDERS: ADMIT Psychiatry & Neurology Psychiatry; ATTEND Psychiatry & Neurology Psychiatry
PROC: HZ42ZZZ Group Counseling for Substance Abuse Treatment, Cognitive-Behavioral (ICD-10-PCS; principal; 2016-09-02)
DX: F14.20 Cocaine dependence, uncomplicated (principal); F17.213 Nicotine dependence, cigarettes, with withdrawal; F19.24 Other psychoactive substance dependence with psychoactive substance-induced mood disorder; J45.22 Mild intermittent asthma with status asthmaticus; K21.9 Gastro-esophageal reflux disease without esophagitis; E73.9 Lactose intolerance, unspecified; K64.4 Residual hemorrhoidal skin tags; R63.4 Abnormal weight loss; Z68.24 Body mass index [BMI] 24.0-24.9, adult
CPT/HCPCS: 36415; 80053; 81003; 81015; 84702; 85027; 86593; 93005; 93010; J2794